=== PATIENT | male | born 1940 | race Caucasian/White ===

== ENCOUNTER → 2017-02-03 | Outpatient (CLI) | payer OTHER ==
[~2017-02-03] MED LIST: ASPIRIN81 M1 PO; LISINOPRIL PO; ZOCOR PO
--- NOTE | ~2017-02-03 | TH ---
Unit #: [id number] #: [id number] Patient: JUSTYN CHEN [id number] [address] [address] [id number] O MR#: [id number] NAME: JUSTYN CHEN : 1940 SEX: M STUDY DATE/TIME: 02/03/2017 UNIT: [facility] ROOM: STUDY DESCRIPTION: Stress nuclear Attending Physician: Roosevelt Gamboa M.D. Referring Physician: Roosevelt Gamboa M.D. Primary Care Physician: Derek Baig M.D. CARDIOLOGY REPORT EXAM Stress nuclear. FINDINGS Result text under stress test. Please see this report for result text. Dictated by... Comfort Conn/timbo TD: 02/04/2017 09:46 JOB #: [id number] CARDIOLOGY REPORT Page 1 of 1 X Jhonny Lutz MD CARDIOLOGY REPORT
--- NOTE | ~2017-02-03 | ST ---
Unit #: [id number] #: [id number] Patient: JUSTYN CHEN [id number] [address] [address] [id number] O MR#: [id number] NAME: JUSTYN CHEN : 1940 SEX: M STUDY DATE/TIME: 02/03/2017 UNIT: [facility] ROOM: STUDY DESCRIPTION: Stress test. Attending Physician: Roosevelt Gamboa M.D. Referring Physician: Roosevelt Gamboa M.D. Primary Care Physician: Derek Baig M.D. CARDIOLOGY REPORT EXAM Stress nuclear and ECG combined. INDICATIONS Dyspnea, abnormal ECG for the diagnosis of obstructive coronary disease contributing to the patient's dyspnea. SUMMARY Patient exercised on a Fredrick protocol and was given technetium 99 Cardiolite, 11.95 and 36 mCi at rest and stress, respectively. Appropriate views were obtained. FINDINGS Patient completed 5 minutes and 3 seconds of exercise. The heart rate increased from 67 to 134 (93%) and blood pressure increased, 166/86 to 184/84. The resting ECG showed left anterior hemiblock, prominent Q waves in the high lateral leads, and interventricular conduction delay. With stress, there were no diagnostic ST shifts, no significant dysrhythmias, but single PVCs were noted. Perfusion images demonstrate normal perfusion throughout the myocardium with the exception of diaphragmatic and intestinal artifact, more at rest than at stress. End-diastolic volume is 111 mL, gated wall motion analysis demonstrates no significant wall motion abnormalities. There is no significant patient motion noted on rest or stress. There is no significant lung uptake, LV or RV enlargement. Summed stress score is a 1. IMPRESSION 1. Good exercise tolerance based on the patient's age. 2. Resting hypertension with normal blood pressure and heart rate responses. 3. Normal stress ECG. 4. Normal stress nuclear study with no ischemia or infarction. 5. Upper normal LV size. Echo correlation if clinically relevant. Normal ejection fraction. Dictated by... Jhonny Lutz M.D. MART/timbo Unit #: [id number] #: [id number] Patient: JUSTYN CHEN TD: 02/04/2017 09:43 JOB #: [id number] CARDIOLOGY REPORT Page 1 of 1 X Jhonny Lutz MD CARDIOLOGY REPORT
== END | disposition home or self-care (01) ==
LOC: CNUC 08:21 → CECH 13:00
DX: R07.9 Chest pain, unspecified (principal); I51.7 Cardiomegaly
CPT/HCPCS: 78452; 93017; 93306; A9500